=== PATIENT | female | born 1995 | race Caucasian/White ===

== ENCOUNTER 2022-12-02 17:47 | Emergency (ER) | payer OTHER, SELFPAY ==
[2022-12-02 18:02] VITALS: BP 128/76; PULSE 77; RESP 16; TEMP 36.6; O2SAT 98; BMI 23.0
--- NOTE | 2022-12-02 18:06 | DI.RAD.S_ITS ---
PROCEDURE: XR WRIST LT MIN 3V INDICATIONS: fall/pain TECHNIQUE: Four views of the wrist were acquired. COMPARISON: None. FINDINGS: Bones: No fractures or dislocations. No suspicious bony lesions. Scaphoid view: No scaphoid fracture seen. Soft tissues: No suspicious soft tissue calcifications. IMPRESSION: Intact left wrist. Dictated by: Isis Wakefield M.D. on 12/02/2022 at 19:21 Approved by: Isis Wakefield M.D. on 12/02/2022 at 19:22
[2022-12-02 20:31] VITALS: BP 115/64; PULSE 73; RESP 16; TEMP 36.5; O2SAT 99
--- NOTE | 2022-12-02 21:33 | ED.UPPEXIN ---
HPI - Extremity Injury (Upper) General Chief Complaint: Extremity Injury, Upper Stated Complaint: lt wrist injury s/p fall Time Seen by Provider: 12/02/22 21:31 Source: patient Mode of arrival: Ambulatory History of Present Illness HPI narrative: Patient 27-year-old female history of congestive heart failure presents today after slip and fall at work and left wrist pain. She reports it was wet on the floor she slipped and fell landing on her wrist. No numbness tingling or weakness. She denies any other injury. No chest pain rest. He initially had quite a bit of swelling but it has gone down with ice. Related Data Allergies Allergy/AdvReac Type Severity Reaction Status Date / Time No Known Drug Allergies Allergy Verified 12/02/22 18:02 Review of Systems Review of Systems ROS Unobtainable: All systems reviewed & are unremarkable except as noted in HPI and below Patient History Social History Smoking Status: Never smoker Smoking Status: Never smoker Substance Use Type: does not use Exam Initial Vital Signs Initial Vital Signs: Vital Signs Temperature 98 F 12/02/22 18:02 Pulse Rate 77 12/02/22 18:02 Respiratory Rate 16 12/02/22 18:02 Blood Pressure 128/76 12/02/22 18:02 Pulse Oximetry 98 12/02/22 18:02 Oxygen Delivery Method Room Air 12/02/22 18:02 GENERAL: Well-appearing, well-nourished and in no acute distress. CARDIOVASCULAR: peripheral pulses in tact, cap refill <2 sec RESPIRATORY: No respiratory distress, speaks in full sentences without difficulty EXTREMITIES: Normal range of motion, no clubbing or edema. Neurovascularly intact Left wrist no swelling no deformity distal radial pulse intact radial median ulnar nerve intact. NEUROLOGICAL: Cranial nerves II through XII grossly intact. Normal gait and speech. SKIN: Warm, dry, no petechiae, no rashes or lesions. Course Orders Ordered: ED Orders 12/02/22 18:06 XR wrist LT min 3V Stat Vital Signs Vital signs: Vital Signs - 8 hr 12/02/22 18:02 12/02/22 20:31 Temperature 98 F 97.7 F Pulse Rate 77 73 Respiratory Rate 16 16 Blood Pressure 128/76 115/64 Pulse Oximetry 98 99 Oxygen Delivery Method Room Air Room Air MDM - Extremity Injury (Upper) Imaging Data Extremity x-ray #1: Radiologist's Impression: PROCEDURE:? XR WRIST LT MIN 3V ? INDICATIONS: fall/pain ? TECHNIQUE:? Four views of the wrist were acquired.? ? COMPARISON:? None. ? FINDINGS:? ? Bones:? No fractures or dislocations.? No suspicious bony lesions.? ? Scaphoid view:? No scaphoid fracture seen. ? Soft tissues:? No suspicious soft tissue calcifications.? ? IMPRESSION:? Intact left wrist. ? ? Dictated by: Isis Wakefield M.D. on 12/02/2022 at 19:21 ? ? [facility] Narrative Medical decision making narrative: Patient 27-year-old female presents today after a slip and fall while at work. X-rays negative for fracture diagnosed with sprain and contusion. Elevation and ice supportive care only Discharge Plan Departure Patient Disposition: Home Clinical Impression: Sprain and strain of wrist Instructions: DI for Wrist Sprain Activity Restrictions/Additional Instructions: *You have been diagnosed with left wrist sprain *What to do: Elevate and ice. Wear brace as needed. *Continue to take medications as directed Tylenol 1000 mg every 6 hours if needed for [id number] *Follow up with your primary care provider in 2-3 days or call [phone] *Return to ER if you should have pain numbness tingling weakness [or] any new, worsening or concerning symptoms Referrals: Queenie Velazquez FNP-C [Primary Care Provider] - Stand Alone Forms: Patient Portal/API
== END 2022-12-02 21:47 | disposition home or self-care (01) ==
PROVIDERS: Emergency Provider Emergency Medicine; PCP Registered Nurse
DX: S63.502A Unspecified sprain of left wrist, initial encounter (principal); S66.912A Strain of unspecified muscle, fascia and tendon at wrist and hand level, left hand, initial encounter; W01.0XXA Fall on same level from slipping, tripping and stumbling without subsequent striking against object, initial encounter; Y99.0 Civilian activity done for income or pay
CPT/HCPCS: 73110; 99283